=== PATIENT | female | born 1950 | race Caucasian/White ===

== ENCOUNTER 2022-02-02 06:51 | Inpatient (IN) | payer MEDICARE, OTHER ==
[~2022-02-02] VITALS: Ht 154.9 cm; Wt 110.7 kg
[2022-02-02 09:12] LABS: HEMOGLOBIN 13.2 gm/dl (12.3-15.3); RED BLOOD COUNT 4.24 M/UL (4.00-5.10); WHITE BLOOD COUNT 6.4 K/UL (4.5-11.0)
[2022-02-02] MEDS ORDERED: ANASTROZOLE1 MG PO (09:35)
[2022-02-02 09:36] LABS: BUN/CREATININE RATIO 26 (0-10)
[2022-02-02] MEDS ORDERED: HYDROCHLOROTHIA25 MG PO (09:36)
[2022-02-02] MEDS ORDERED: DESYREL 50 MG T50 MG PO (09:37)
[2022-02-02] MEDS ORDERED: LOPRESSOR 50 MG50 MG PO (09:38)
[2022-02-02] MEDS ORDERED: ATORVASTATIN CA20 MG PO (09:41)
[2022-02-02] MEDS ORDERED: FISH OIL 1,0001 EAC1 PO (09:44)
[2022-02-02] MEDS ORDERED: ONE DAILY WOME1 EAC1 PO (09:44)
[2022-02-02] MEDS ORDERED: VITAMIN D325 MC6 PO (09:45)
[2022-02-02] MEDS ORDERED: ASPIRIN CHEWABL81 MG PO (09:46)
[2022-02-03 07:26] LABS: HEMOGLOBIN 13.1 gm/dl (12.3-15.3); RED BLOOD COUNT 4.2 M/UL (4.00-5.10); WHITE BLOOD COUNT 6.1 K/UL (4.5-11.0)
[2022-02-03 07:51] LABS: BUN/CREATININE RATIO 16 (0-10)
[2022-02-03] MEDS ORDERED: TYLENOL 8 HOUR650 MG PO (11:14)
== END 2022-02-03 12:32 | disposition home or self-care (01) | DRG 563 ==
LOC: ER1 06:51 → M/S 08:32 → CDU 08:32 → M/S 10:37
PROVIDERS: Physician Assistant; ADMIT Internal Medicine
PROC: 0SSGXZZ Reposition Left Ankle Joint, External Approach (ICD-10-PCS; principal; 2022-02-02)
PROC: 0SSFXZZ Reposition Right Ankle Joint, External Approach (ICD-10-PCS; 2022-02-02)
DX: S82.51XA Displaced fracture of medial malleolus of right tibia, initial encounter for closed fracture (principal); Z68.41 Body mass index [BMI] 40.0-44.9, adult; S82.52XA Displaced fracture of medial malleolus of left tibia, initial encounter for closed fracture; W01.0XXA Fall on same level from slipping, tripping and stumbling without subsequent striking against object, initial encounter; I10 Essential (primary) hypertension; S82.61XA Displaced fracture of lateral malleolus of right fibula, initial encounter for closed fracture; E87.6 Hypokalemia; Z20.822 Contact with and (suspected) exposure to COVID-19; S82.62XA Displaced fracture of lateral malleolus of left fibula, initial encounter for closed fracture; E78.5 Hyperlipidemia, unspecified; E66.01 Morbid (severe) obesity due to excess calories; G47.33 Obstructive sleep apnea (adult) (pediatric); Z85.3 Personal history of malignant neoplasm of breast; Z90.11 Acquired absence of right breast and nipple; Z90.49 Acquired absence of other specified parts of digestive tract; Z98.890 Other specified postprocedural states; Z79.899 Other long term (current) drug therapy; Z79.82 Long term (current) use of aspirin; Z82.49 Family history of ischemic heart disease and other diseases of the circulatory system; Z83.3 Family history of diabetes mellitus; Z99.81 Dependence on supplemental oxygen
CPT/HCPCS: 27818; 36415; 73562; 73600; 73610; 80053; 83735; 85025; 85610; 93005; 96374; 99285; J1170; J1650; U0002